=== PATIENT | female | born 1945 | race Caucasian/White ===

== ENCOUNTER 2018-04-23 09:04 | Outpatient (CLI) | payer MEDICARE | END 2018-04-23 09:05 | disposition home or self-care (01) | LOC: BICMAMMO 09:04 | PROVIDERS: ATTEND Nurse Practitioner Family | DX: N63.11 Unspecified lump in the right breast, upper outer quadrant (principal); N64.89 Other specified disorders of breast | CPT/HCPCS: 77066; G0279 ==

== ENCOUNTER 2018-04-28 08:00 | Outpatient (CLI) | payer MEDICARE | END 2018-04-28 08:01 | disposition home or self-care (01) | LOC: BICULT 08:00 | PROVIDERS: ATTEND Nurse Practitioner Family | DX: N63.11 Unspecified lump in the right breast, upper outer quadrant (principal) ==

== ENCOUNTER 2018-11-02 13:13 | Outpatient (CLI) | payer MEDICARE ==
--- NOTE | 2018-11-02 14:29 | ULT ---
SONOGRAM RIGHT BREAST LIMITED: History: Right breast lesion. 6-month follow up. Comparison: 04-28-18 FINDINGS: Sonographic evaluation of the 10 o'clock position right breast in the region of echogenic lesion on t he prior study shows scattered fibroglandular densities. The echogenic mass on the previous study garber s not persist today. No solid or cystic masses. No suspicious shadowing. IMPRESSION: Echogenic lesion from the previous study does not persist. No new abnormalities. BIRADS category 2 - benign findings. Suggest routine mammographic follow up. POS: JOSE
--- NOTE | 2018-11-02 15:46 | BD ---
DEXA BONE DENSITOMETRY: (Dual energy X-ray Absorptiometry) DATE: 11/02/18 HISTORY: 73-year-old white female for baseline, age-related, osteoporosis screening examination. Z78.0, postmenopausal estrogen deficiency. Height: 64.5 Weight: 156 lbs Age of menopause: 56 years COMPARISON: None available. FINDINGS: There are sclerotic degenerative changes at multiple levels in the lumbar spine. This increases the b one mineral density. The bone mineral density (BMD) is given in grams per square centimeter (g/cm2): LUMBAR SPINE: BMD(g/cm2) T-score Z-score L1: 0.902 -0.8 1.2 L2: 1.260 2.1 4.3 L3: 1.051 -0.3 2.0 L4: 0.974 -0.8 1.6 Total: 1.045 0.0 2.2 HIP: Femoral neck: 0.627 -2.0 -0.1 Total: 0.817 -1.0 0.6 FRAX WHO Fracture Risk Assessment Tool: 10 Year Fracture Risk * Major osteoporotic fracture: 16% Hip fracture: 3.6% Reported Risk Factors: [place](), Neck BMD=0.627, BMI=26.4, rheumatoid arthritis, and secondary osteoporosis. * Fracture probability is calculated for an untreated patient. Fracture probability may be lower if the patient has received treatment. IMPRESSION: 1. The mean bone mineral density of the lumbar spine is normal. Fracture risk would be not increase d. However, the sclerotic degenerative changes in the lumbar spine elevate the bone mineral density, thereby possibly resulting in underestimation of the fracture risk. 2. The bone mineral density of the femoral neck is osteopenic. Fracture risk is increased. JN Leslie POS: TPC
== END 2018-11-02 13:14 | disposition home or self-care (01) ==
LOC: BICMAMMO 13:13
PROVIDERS: ATTEND Nurse Practitioner Family
DX: Z13.820 Encounter for screening for osteoporosis (principal); N63.10 Unspecified lump in the right breast, unspecified quadrant; R92.1 Mammographic calcification found on diagnostic imaging of breast; R92.2 Inconclusive mammogram; N64.89 Other specified disorders of breast; M85.859 Other specified disorders of bone density and structure, unspecified thigh; Z78.0 Asymptomatic menopausal state; Z80.3 Family history of malignant neoplasm of breast
CPT/HCPCS: 77063; 77067; 77080

== ENCOUNTER 2020-10-01 14:30 | Outpatient (CLI) | payer MEDICARE ==
--- NOTE | 2020-10-01 15:19 | MMO ---
Bilateral MAMMO Bilat Screen [facility]. CLINICAL HISTORY: Patient is 75 years old and is seen for screening. The patient has no family history of breast cancer. The patient has no personal history of cancer. The patient has a history of right Excisional Biopsy in 1974 - benign. VIEWS: The views performed were: bilateral craniocaudal with tomosynthesis and bilateral mediolateral oblique with tomosynthesis. FILMS COMPARED: The present examination has been compared to prior imaging studies performed at [facility] on 04/29/2016, 05/04/2017, 04/23/2018 and 11/02/2018. This study has been interpreted with the assistance of computer-aided detection. MAMMOGRAM FINDINGS: The breasts are heterogeneously dense, which could obscure a lesion on mammography. There are stable benign appearing calcifications seen in both breasts. There are no suspicious masses, suspicious calcifications, or new areas of architectural distortion. IMPRESSION: THERE IS NO MAMMOGRAPHIC EVIDENCE OF MALIGNANCY. A ROUTINE FOLLOW-UP MAMMOGRAM IN 1 YEAR IS RECOMMENDED. THE RESULTS OF THIS EXAM WERE SENT TO THE PATIENT. ACR BI-RADS Category 2 - Benign finding MAMMOGRAPHY NOTE: 1. A negative mammogram report should not delay a biopsy if a dominant of clinically suspicious mass is present. 2. Approximately 10% to 15% of breast cancers are not detected by mammography. 3. Adenosis and dense breasts may obscure an underlying neoplasm. Reported by: DARREN MACKAY MD Electonically Signed: [id number]
--- NOTE | 2020-10-01 16:39 | ULT ---
EXAM: US Soft Tissue Other PROVIDED CLINICAL HISTORY: Axillary lump COMPARISON: None FINDINGS: Limited sonographic interrogation was performed of the left axilla in the region of palpable concern. The sonographic appearance of the tissues in this region is normal. IMPRESSION: No sonographic abnormality is evident in the region of palpable concern.
--- NOTE | 2020-10-01 16:39 | BD ---
DEXA BONE DENSITY STUDY: Date: 10/01/2020 HISTORY: Postmenopausal. FINDINGS: Lumbar Spine: BMD (g/cm2) L1 0.901 T-Score: -0.8 L2 1.226 T-Score: +1.8 L3 0.972 T-Score: -1.0 L4 1.202 T-Score: +1.3 Total 1.080 T-Score: +0.3 Left Femoral Neck: 0.592 T-Score: -2.3 Total Femur: 0.742 T-Score: -1.6 IMPRESSION: 1. Osteopenia of the left femoral neck and normal bone mineral density of the lumbar spine. 2. 10 year fracture risk for major osteoporotic fracture is 14% and for a hip fracture is 3.9%. Thes e fracture probabilities are calculated for an untreated patient. POS: DAVID
== END 2020-10-01 14:31 | disposition home or self-care (01) ==
LOC: BICMAMMO 14:30
PROVIDERS: ATTEND Nurse Practitioner Family
DX: Z12.31 Encounter for screening mammogram for malignant neoplasm of breast (principal); Z13.820 Encounter for screening for osteoporosis; Z78.0 Asymptomatic menopausal state; R22.30 Localized swelling, mass and lump, unspecified upper limb; M85.89 Other specified disorders of bone density and structure, multiple sites; Z91.89 Other specified personal risk factors, not elsewhere classified
CPT/HCPCS: 76999; 77063; 77067; 77080

== ENCOUNTER 2021-11-06 13:19 | Outpatient (CLI) | payer MEDICARE | END 2021-11-06 13:20 | disposition home or self-care (01) | LOC: BICMAMMO 13:19 | PROVIDERS: ATTEND Nurse Practitioner Family | DX: Z12.31 Encounter for screening mammogram for malignant neoplasm of breast (principal); Z91.89 Other specified personal risk factors, not elsewhere classified; Z80.3 Family history of malignant neoplasm of breast; Z80.52 Family history of malignant neoplasm of bladder; Z80.0 Family history of malignant neoplasm of digestive organs | CPT/HCPCS: 77063; 77067 ==

== ENCOUNTER 2022-12-15 13:05 | Outpatient (CLI) | payer MEDICARE | END 2022-12-15 13:06 | disposition home or self-care (01) | LOC: BICMAMMO 13:05 | PROVIDERS: ATTEND Nurse Practitioner Family | DX: Z12.31 Encounter for screening mammogram for malignant neoplasm of breast (principal); Z80.3 Family history of malignant neoplasm of breast; Z91.89 Other specified personal risk factors, not elsewhere classified | CPT/HCPCS: 77063; 77067 ==

== ENCOUNTER 2023-03-24 08:19 | Outpatient (CLI) | payer MEDICARE | END 2023-03-24 08:20 | disposition home or self-care (01) | LOC: BICMAMMO 08:19 | PROVIDERS: ATTEND Nurse Practitioner Family | DX: Z13.820 Encounter for screening for osteoporosis (principal); M85.89 Other specified disorders of bone density and structure, multiple sites | CPT/HCPCS: 77080 ==

== ENCOUNTER 2024-01-07 12:48 | Outpatient (CLI) | payer MEDICARE | END 2024-01-07 12:49 | disposition home or self-care (01) | LOC: BICMAMMO 12:48 | PROVIDERS: ATTEND Nurse Practitioner Family | DX: Z12.31 Encounter for screening mammogram for malignant neoplasm of breast (principal); Z80.3 Family history of malignant neoplasm of breast; Z91.89 Other specified personal risk factors, not elsewhere classified | CPT/HCPCS: 77063; 77067 ==

== ENCOUNTER 2024-08-30 18:54 | Observation (INO) | payer MEDICARE ==
[2024-08-30 20:20] LABS: %Basophils 0.7 % (0.0-1.0); %Eosinophils 2.7 % (0.0-10.0); %Lymphocytes 11.6 % (21.0-51.0); %Monocytes 6.8 % (0.0-10.0); %Neutrophils 77.7 % (42.0-75.0); Hematocrit 42.2 % (36.0-47.0); Hemoglobin 14.6 g/dL (12.0-16.0); Mean Corpuscular HGB CONC 34.6 g/dL (32.0-36.0); Mean Corpuscular Hemoglobin 30.9 pg (27.0-31.0); Mean Corpuscular Volume 89.4 fL (78.0-98.0); Mean Platelet Volume 9.9 fL (7.4-10.4); Platelet Count 286 10x3/uL (130-400); RBC Distribution Width 13.2 % (11.5-14.5); Red Blood Cell (RBC) Count 4.72 mill/uL (4.20-5.40)
[2024-08-30 20:34] LABS: ALT (SGPT) 20 U/L (8-55); AST (SGOT) 19 U/L (5-34); Albumin 4.1 g/dL (3.4-4.8); Alkaline Phosphatase 73 U/L (40-110); Anion Gap 15 mmol/L (10-20); BUN (Urea Nitrogen) 27 mg/dL (9.8-20.1); Bilirubin, Total 0.3 mg/dL (0.2-1.2); Calc. Creatinine Clearance 0 mL/min (70-130); Calcium 10.1 mg/dL (7.8-10.44); Carbon Dioxide 23 mmol/L (23-31); Chloride 108 mmol/L (98-107); Estimated GFR 59; Globulin 2.8 g/dL (2.4-3.5); Glucose 119 mg/dL (83-110); Potassium 3.8 mmol/L (3.5-5.1); Protein, Total 6.9 g/dL (5.8-8.1); Sodium 142 mmol/L (136-145)
[2024-08-30 20:39] LABS: Troponin I Less than 0.010 ng/mL (< 0.028)
[2024-08-31] MEDS ORDERED: Ondansetron PF 4 MG/2 ML Vial IVP PRN (02:57)
[2024-08-31] MEDS: Pantoprazole 40 MG VIAL IVP SCH (03:23)
[2024-08-31] MEDS: Sodium Chloride 0.9% 1,000 ML IV SCH (05:11)
[2024-08-31 05:36] LABS: #Basophils 0.08 10x3/uL (0.0-0.2); %Basophils 0.7 % (0.0-1.0); %Eosinophils 2.6 % (0.0-10.0); %Lymphocytes 15.9 % (21.0-51.0); %Monocytes 9.1 % (0.0-10.0); %Neutrophils 71.2 % (42.0-75.0); Hematocrit 39.5 % (36.0-47.0); Hemoglobin 13.3 g/dL (12.0-16.0); Mean Corpuscular HGB CONC 33.7 g/dL (32.0-36.0); Mean Corpuscular Hemoglobin 30.4 pg (27.0-31.0); Mean Corpuscular Volume 90.2 fL (78.0-98.0); Mean Platelet Volume 10.1 fL (7.4-10.4); Platelet Count 261 10x3/uL (130-400); RBC Distribution Width 13.2 % (11.5-14.5); Red Blood Cell (RBC) Count 4.38 mill/uL (4.20-5.40)
[2024-08-31 05:39] LABS: Anion Gap 11 mmol/L (10-20); BUN (Urea Nitrogen) 19 mg/dL (9.8-20.1); Calc. Creatinine Clearance 68 mL/min (70-130); Carbon Dioxide 21 mmol/L (23-31); Chloride 112 mmol/L (98-107); Estimated GFR 75; Glucose 107 mg/dL (83-110); Potassium 3.3 mmol/L (3.5-5.1); Sodium 141 mmol/L (136-145)
[2024-08-31] MEDS ORDERED: PROPOFOL 20 ML ONE (07:20)
[2024-08-31] MEDS ORDERED: Lidocaine 1% PF 5 ML VIAL ONE (07:20)
[2024-08-31] MEDS ORDERED: Albuterol 2.5 MG (3 mL) NEB NEB PRN (07:45)
[2024-08-31] MEDS ORDERED: Potassium Chloride 20 MEQ in Premix 1 BAG IVPB SCH ×2 (08:00→10:00)
[2024-08-31] MEDS ORDERED: Pantoprazole 40 MG VIAL IVP SCH (09:00)
[2024-08-31] MEDS ORDERED: Bisacodyl 10 MG SUPP PR SCH (09:00)
[2024-08-31] MEDS ORDERED: Electrolyte Replacement Protocol 1 EACH FS PRN (09:07)
[2024-08-31] MEDS ORDERED: hydrALAZINE 20 MG/ML VIAL SLOW IVP PRN (09:08)
[2024-08-31] MEDS ORDERED: Electrolyte Replacement Protocol FS PRN (09:30)
[2024-08-31] MEDS: Potassium Chloride 20 MEQ TAB PO SCH (11:22)
[2024-08-31] MEDS: Acetaminophen 325 MG TAB PO SCH (11:22)
[2024-08-31 12:59] VITALS: TEMP 98.2
[2024-08-31 13:37] VITALS: BP 152/60
== END 2024-08-31 13:38 | disposition home or self-care (01) ==
LOC: ERS 18:54 → SURG B 08-31 00:55
PROVIDERS: ADMIT Internal Medicine; ATTEND Internal Medicine
PROC: 0DB68ZX Excision of Stomach, Via Natural or Artificial Opening Endoscopic, Diagnostic (ICD-10-PCS; principal; 2024-08-30)
DX: K29.50 Unspecified chronic gastritis without bleeding (principal); K22.10 Ulcer of esophagus without bleeding; K44.9 Diaphragmatic hernia without obstruction or gangrene; K29.80 Duodenitis without bleeding; K31.5 Obstruction of duodenum; K21.9 Gastro-esophageal reflux disease without esophagitis; J45.909 Unspecified asthma, uncomplicated; Z90.710 Acquired absence of both cervix and uterus; Z80.0 Family history of malignant neoplasm of digestive organs; Z79.899 Other long term (current) drug therapy
CPT/HCPCS: 43239; 74022; 80048; 80053; 84484; 85025 ×2; 93005; 96360; 96361; 96374; 99285; G0378 ×2; J2470; J2704; J7030; 36415; 88305

== ENCOUNTER 2025-11-16 11:52 | Outpatient (CLI) | payer MEDICARE | END 2025-11-16 11:53 | disposition home or self-care (01) | LOC: BICMAMMO 11:52 | PROVIDERS: ATTEND Nurse Practitioner Family | DX: Z78.0 Asymptomatic menopausal state (principal); M81.0 Age-related osteoporosis without current pathological fracture | CPT/HCPCS: 77080 ==